=== PATIENT | male | born 1985 | race Caucasian/White ===

== ENCOUNTER 2018-06-12 18:15 | Emergency (ER) | payer MEDICAID ==
[~2018-06-12] VITALS: Ht 185.4 cm; Wt 68.0 kg
[2018-06-12 18:32] VITALS: Ht 185.4 cm; Wt 68.0 kg
[2018-06-12 20:49] LABS: CALCIUM 9.2 mg/dL (8.5-10.1); CARBON DIOXIDE 31.7 mmol/L (21-32); CHLORIDE SERUM 103 mmol/L (98-107); CREATININE SERUM 1.1 mg/dL (0.7-1.3); GFR1 > 60 mL/min; GLUCOSE SERUM 97 mg/dL (74-106); POTASSIUM SERUM 4.1 mmol/L (3.5-5.1); SODIUM SERUM 140 mmol/L (136-145)
[2018-06-12 20:54] LABS: ALBUMIN 3.5 g/dL (3.4-5.0); ALKALINE PHOSPHATASE 166 U/L (46-116); ALT/SGPT 29 U/L (16-63); AST/SGOT 24 U/L (15-37); BILIRUBIN TOTAL 0.22 mg/dL (0.20-1.00); TOTAL PROTEIN, SERUM 7.5 g/dL (6.4-8.2)
[2018-06-12 21:25] VITALS: BP 146/87
== END 2018-06-12 21:25 | disposition home or self-care (01) ==
LOC: ED 18:15
PROVIDERS: Emergency Medicine
DX: S61.235A Puncture wound without foreign body of left ring finger without damage to nail, initial encounter (principal); J45.909 Unspecified asthma, uncomplicated; Z88.8 Allergy status to other drugs, medicaments and biological substances; F17.210 Nicotine dependence, cigarettes, uncomplicated; W26.8XXA Contact with other sharp object(s), not elsewhere classified, initial encounter; Y93.89 Activity, other specified; Y92.89 Other specified places as the place of occurrence of the external cause; Y99.8 Other external cause status

== ENCOUNTER 2020-02-07 17:02 | Emergency (ER) | payer BC ==
[~2020-02-07] VITALS: Ht 185.4 cm; Wt 77.1 kg
[2020-02-07 17:10] VITALS: Ht 185.4 cm; Wt 77.1 kg
[2020-02-07 18:02] VITALS: BP 126/80
== END 2020-02-07 18:02 | disposition home or self-care (01) ==
LOC: ED 17:02
DX: S62.397A Other fracture of fifth metacarpal bone, left hand, initial encounter for closed fracture (principal); J45.909 Unspecified asthma, uncomplicated; Z88.8 Allergy status to other drugs, medicaments and biological substances; W51.XXXA Accidental striking against or bumped into by another person, initial encounter; Y93.89 Activity, other specified; Y92.810 Car as the place of occurrence of the external cause; Y99.8 Other external cause status
CPT/HCPCS: Q0092